=== PATIENT | female | born 1970 | race Caucasian/White ===

== ENCOUNTER 2020-07-31 20:51 | Emergency (ER) | payer SELFPAY ==
[2020-07-31] MEDS ORDERED: PENICILLIN V POTASSIUM 500 MG TABLET PO ONE (21:20)
[2020-07-31] MEDS ORDERED: IBUPROFEN 800 MG TABLET PO ONE (21:20)
[2020-07-31] MEDS ORDERED: LIDOCAINE 1% INJ-PF (10 MG/ML) 30 ML SDV INJ ONE (21:21)
[2020-07-31] MEDS ORDERED: LIDOCAINE 2% VISCOUS SOLN 15 ML UDCUP PO ONE (21:22)
--- NOTE | 2020-07-31 21:28 | ER Document Report ---
ED Oral Problem - General Chief Complaint: Abscess Stated Complaint: MOUTH PAIN AND SWELLING Time Seen by Provider: 07/31/20 21:19 Mode of Arrival: Ambulatory Information source: Patient Notes: 50-year-old female presents to ED for pain and swelling to the right side of her lower jaw. She does have a abscess on the inside of her mouth on the right lower jaw. She states she had something similar when she had a dental abscess and it swelled up just this past. She states it swelled up in the last hour and a half. She states there is no pain unless you touch it and then the pain level is about a 2/5. States she is just concerned because last time she had something like this the swelling became very big and severe very fast. Constitutional: Negative for fever. HENT: Negative for sore throat. Eyes: Negative for visual changes. Cardiovascular: Negative for chest pain. Respiratory: Negative for shortness of breath. Gastrointestinal: Negative for abdominal pain, vomiting or diarrhea. Genitourinary: Negative for dysuria. Musculoskeletal: Negative for back pain. Skin: Negative for rash. Neurological: Negative for headaches, weakness or numbness. 10 point ROS negative except as marked above and in HPI. VITAL SIGNS: Within normal limits. GENERAL: No acute distress, non-toxic appearance. HEAD: Normal with no signs of head trauma. EYES: PERRLA, EOMI, conjunctiva normal, no discharge. EARS: Hearing grossly intact. NOSE: Normal. THROAT: Oropharynx is normal. Patient has a abscess to the lower right gums and cheek. She states it just started swelling about an hour and a half ago. It is tender to palpation. No obvious dental decay in the area NECK: Normal range of motion, no tenderness, supple, no lymphadenopathy, No adenopathy, no JVD. CHEST: Clear breath sounds bilaterally. No wheezes, rales, or rhonchi. CARDIAC: Regular rate and rhythm. S1 and S2, without murmurs, gallops, or rubs. VASCULAR: No Edema. Peripheral pulses normal and equal in all extremities. ABDOMEN: Normal and soft with no tenderness, no masses or pulsatile masses. GASTROINTESTINAL: Bowel sounds normal GENITOURINARY: Normal, No tenderness LYMPATHTIC: No lymphadenopathy noted. MUSCULOSKELETAL: Good range of motion of all major joints. Extremities without clubbing, cyanosis or edema. NEUROLOGICAL: Alert and oriented x 3. No focal sensory or strength deficits. Speech normal. Follows commands appropriately. PSYCHIATRIC: Normal Affect, judgement and mood. SKIN: Normal appearance with no rashes or lesions. - HPI Patient complains to provider of: Swelling of face, Other - Pain to palpation to the dental abscess Onset: Just prior to arrival Quality of pain: Sharp - When palpated, Other - No pain unless palpated Severity: Moderate - When palpated Pain Level: 2 Swollen jaw/face: Mild Associated symptoms: Other - Facial swelling Relieved by: Nothing Similar symptoms previously: Yes Recently seen / treated by doctor/dentist: No - Related Data Allergies/Adverse Reactions: No Known Allergies Allergy (Unverified 07/31/20 21:13) Past Medical History - General Information source: Patient - Social History Smoking Status: Current Every Day Smoker Cigarette use (# per day): Yes - Pack a day Smoking Education Provided: Yes - 4 minutes Frequency of alcohol use: Occasional Drug Abuse: None Occupation: [employer] in [place] Lives with: Alone Family History: Reviewed & Not Pertinent Patient has suicidal ideation: No Patient has homicidal ideation: No - Past Medical History Cardiac Medical History: Reports: None Pulmonary Medical History: Reports: None EENT Medical History: Reports: None Neurological Medical History: Reports: None Endocrine Medical History: Reports: None Renal/ Medical History: Reports: None Malignancy Medical History: Reports: None GI Medical History: Reports: None Musculoskeletal Medical History: Reports None Skin Medical History: Reports None Psychiatric Medical History: Reports: None Traumatic Medical History: Reports: None Infectious Medical History: Reports: None Past Surgical History: Reports: Hx Oral Surgery - Oral surgery for dental abscess, Hx Tubal Ligation - Immunizations Immunizations up to date: Yes Hx Diphtheria, Pertussis, Tetanus Vaccination: Yes Physical Exam - Vital signs Vitals: Temp Pulse Resp BP Pulse Ox 98.6 F 77 12 143/94 H 97 07/31/20 21:05 07/31/20 21:05 07/31/20 21:05 07/31/20 21:05 07/31/20 21:05 Course - Re-evaluation Re-evalutation: 07/31/20 21:46 I&D to the right lower jaw/cheek was I&D with 11 blade after instilling 2 cc of lidocaine. Moderate amount of purulent drainage returned. Patient then gargled with warm water. She was given instructions for gargling with warm salt and soda solution. She was given prescription for penicillin. She was given a dose of penicillin in the emergency room. She was also given a dose of ibuprofen 800 mg. She was then sent home with a syringe of viscous lidocaine to apply to the jaw every 4 hours as needed for pain. Patient was instructed to please follow- up with a dentist as soon as possible. - Vital Signs Vital signs: Temp Pulse Resp BP Pulse Ox 98.6 F 77 12 143/94 H 97 07/31/20 21:05 07/31/20 21:05 07/31/20 21:05 07/31/20 21:05 07/31/20 21:05 Procedures - Incision and Drainage Right Lower jaw Time completed: 21:46 Type: Simple Anesthetic type: 1% Lidocaine mL's of anesthetic: 2 Blade size: 11 I&D procedure: Other Incision Method: Incision made by scalpel Discharge - Discharge Clinical Impression: Dental abscess Condition: Stable Disposition: HOME, SELF-CARE Additional Instructions: ABSCESS: You have an abscess (boil). This a pus-forming infection, usually due to staph. Some boils may be left to drain on their own, but most require lancing. From the time the tender lump first appears, it may be three or four days before the abscess is ready to jamshid. Local heat and rest help at this stage of treatment. An antibiotic may prevent spread of the infection. Once the abscess is opened, packing may be placed into it. This is done so pus is not sealed inside by premature closure of the cavity. The packing will be removed at your follow-up visit or you may be advised to remove it yourself at home. Sometimes this packing must be replaced a few times during healing. The wound will heal with surprisingly little scar. Depending on the size and location of an abscess, healing can take one to four weeks. You may shower and wash the area around the incision site two or three times a day. Antibiotics may be prescribed, but are usually not necessary after an abscess has been drained. If you develop fever, chills, worsening pain, or increasing swelling in the area, call the doctor or return immediately. POST INCISION AND DRAINAGE: You have had an incision made to allow drainage of an abscess. The incision must remain open so that pus and debris can drain from the wound. If the abscess cavity is large, packing is placed. This keeps the tissues from collapsing and trapping pus inside, while the body shrinks the cavity. The packing may need to be replaced every day or two. The physician will instruct you on the packing. Keep a bulky dressing over the area. Replace it if it becomes saturated with blood or pus. Do not disturb the packing (if present). You may shower and cleanse the area with gentle soap and warm water two or three times a day. Local warmth may be soothing, and may promote faster healing. Return if you develop high fever or chills, or if you note spreading redness, increasing swelling, or increasing tenderness. PENICILLIN V K: You have been given a prescription for Penicillin VK. Your physician has determined that this is the best antibiotic for your condition. Pen VK can be taken with meals, however more of the antibiotic gets into the bloodstream if it's taken on an empty stomach. Penicillin usually has no side effects. However, allergy to penicillins is common. If you have had an allergic reaction to any drug of the penicillin family, you should never take any other penicillin. Notify your doctor at once if you develop hives, itching, swelling, faintness, or shortness of breath. oraseptic spray was [id number] that will also help with your sore throat. Salt and soda solution gargle 1 quart of water 1 tablespoon of salt 1 teaspoon of baking soda Mixed 3 ingredients together and boil for 1 minute Placed in a covered quart jar Use 1/2 ounce of cold solution to gargle 3 times a day I have given you a syringe of viscous lidocaine. You can place a small amount of this to your finger and apply it to the gums every 4 hours. Please do not put it on any more often than every 4 hours or it can erode the skin on your gums. Please follow-up with a dentist as soon as possible. Please take your antibiotics until they are completed. FOLLOW-UP CARE: You have been referred for follow-up care to the dentists listed below. Call the dentists office for an appointment as you were instructed or within the next two days. If you experience worsening or a significant change in your symptoms, notify the physician immediately or return to the Emergency Department at any time for re-evaluation. [facility] [address] [place] [address] [facility] [address] [facility] [address] [facility] ([facility]) [facility] [address] [email or web address] [address] [place] [address] Friday- 8:00am to 5:00 pm Will see patients from other [facility]. Charges based on income and family size and accepts Medicare, Medicaid, and Insurances Will pull molars [facility] [id number] Hours of Operation 8:00 am - 4:30 pm weekdays The following dental offices accept Medicaid: [facility] Dr. [place] Dr. Iglesias Dr. Christian Dr. Hicks David Ramachandran, Rebecca, and Buzz oral surgery Dr. Martinez ([place]) Dr. Alonso ([place]) [facility] Drs. Askew ([place]) Dr. Larose ([place]) [facility] Dr. Mccoy ([place]) Drs. Valenzuela and ([place]) Medicaid Care Line Prescriptions: Penicillin V Potassium [Penicillin Vk 500 mg Tablet] 500 mg PO BID #20 tablet Forms: Elevated Blood Pressure, Smoking Cessation Education, Return to Work
[2020-07-31 22:01] VITALS: BP 142/72
== END 2020-07-31 21:44 | disposition home or self-care (01) ==
LOC: ER 20:51
DX: K04.7 Periapical abscess without sinus (principal); F17.210 Nicotine dependence, cigarettes, uncomplicated; Z71.6 Tobacco abuse counseling
CPT/HCPCS: 99283; 41800; J3490 ×2